=== PATIENT | male | born 1985 | race African-American/Black ===

== ENCOUNTER 2017-02-03 10:50 | Emergency (ER) | payer OTHER ==
[~2017-02-03] VITALS: Ht 175.3 cm; Wt 86.2 kg
[2017-02-03 10:50] VITALS: BP 161/113; PULSE 91; RESP 19; TEMP 97.2; O2SAT 98
[~2017-02-03 10:50] MED LIST: ATENOLOL; IBUPROFEN
--- NOTE | 2017-02-03 10:50 | NUR ---
BROUGHT BACK TO BED #3 AND TRIAGED. REPORT GIVEN TO ALEXANDRE
--- NOTE | 2017-02-03 10:51 | NUR ---
ER at bedside examining patient.
--- NOTE | 2017-02-03 10:52 | NUR ---
PT STATES THAT HE IS NOT ALLERGIC TO MORPHINE. DR HAYNES AWARE
--- NOTE | 2017-02-03 10:53 | NUR ---
pt presents to ED initially c/o chest pain and caban, howver during assessment reports chief complaint is headache. Pt h/o htn and [employer] shunt since with first malfunction at age 29 repaired at [place].
[2017-02-03] MEDS ORDERED: MORPHINE SULFATE 10 MG/ML VIAL IM ONE (11:00)
[2017-02-03] MEDS ORDERED: ONDANSETRON 4 MG ODT TAB PO ONE (11:00)
--- NOTE | 2017-02-03 11:01 | NUR ---
pt medicated for pain and nausea.Will reassess for results.
[2017-02-03 11:19] LABS: BASOPHILS % (AUTO) 0.6 % (0.0-2.0); EOSINOPHILS % (AUTO) 0.6 % (0.0-4.0); HEMOGLOBIN 12.8 g/dL (14.0-18.0); LYMPHOCYTES % (AUTO) 23.4 % (20.5-51.5); MEAN CORPUSCULAR HEMOGLOBIN 26 pg (27-31); MEAN CORPUSCULAR HGB CONC 32 % (32-36); MEAN CORPUSCULAR VOLUME 82 fL (79.0-98.0); MONOCYTES # (AUTO) 0.3 K/uL (0.0-1.0); MONOCYTES % (AUTO) 7.7 % (1.7-9.3); NEUTROPHILS # (AUTO) 2.8 K/uL (1.8-7.7); NEUTROPHILS % (AUTO) 67.7 % (40.0-70.0); PLATELET COUNT (AUTO) 294 K/uL (130-430); RED BLOOD CELL COUNT(AUTO) 4.86 MIL/uL (4.2-6.2); RED CELL DISTRIBUTION WIDTH 12.3 % (9.0-15.0); WHITE BLOOD COUNT (AUTO) 4.1 K/uL (4.8-10.8)
[2017-02-03 11:29] LABS: CALCIUM 9.9 mg/dL (8.4-11.0); CREATININE 1.12 mg/dL (0.55-1.30); POTASSIUM 4.4 mmol/L (3.5-5.1)
[2017-02-03 11:32] LABS: INR 0.9 (0.80-1.20); PROTHROMBIN TIME 10.1 SECS (9.5-12.5)
[2017-02-03 11:34] LABS: ALBUMIN 4.2 g/dL (3.4-4.8); TOTAL BILIRUBIN 0.3 mg/dL (0.0-1.0); TOTAL PROTEIN, SERUM 7.8 g/dL (6.4-8.3)
--- NOTE | 2017-02-03 11:35 | NUR ---
Pt reports Headache no improving,nausea resolved. Dr. marcus informed.
[2017-02-03] MEDS ORDERED: METOCLOPRAMIDE HCL 10 MG/2 ML VIAL IVP ONE (11:45)
[2017-02-03] MEDS ORDERED: DIPHENHYDRAMINE INJ 50 MG/ML VIAL IVP ONE (11:45)
--- NOTE | 2017-02-03 11:48 | NUR ---
Pt refused non narcotic medication for caban reflief. Pt denies SOB or chest pain.
[2017-02-03 12:10] LABS: CKMB RELATIVE INDEX 0.1 (0.0-2.9); CREATINE KINASE MB 0.5 ng/mL (0-3.6)
[2017-02-03] MEDS ORDERED: cloNIDine HCL 0.1 MG TABLET PO ONE (12:15)
--- NOTE | 2017-02-03 12:20 | NUR ---
Pt medicated for HTN.pt tolerated well.
[2017-02-03] MEDS ORDERED: ASPIRIN 325 MG TABLET (ECOTRIN) PO ONE (13:00)
--- NOTE | 2017-02-03 13:00 | NUR ---
Pt report headache resolved afer medication. BP 152/82
[2017-02-03 13:50] VITALS: BP 144/70; PULSE 88; RESP 20; TEMP 98.2; O2SAT 97
--- NOTE | 2017-02-03 13:50 | NUR ---
Patient to be transferred to [facility]. Is being transferred due to higher level of care. Receiving facility has accepting physician and available space. ER physician has signed transfer form. Patient or responsible republican has agreed to transfer and signed form. Patient belongings inventoried and will be sent with patient. Copy of nursing notes, lab reports, EKG, Physicians Orders and X-rays to be sent with patient. Report called to Pavan at receiving facility. ambulance service has been called for transfer.
[2017-06-15] MEDS ORDERED: LEVE750T4 PO (18:45)
[2017-06-15] MEDS ORDERED: LACO100T2 PO (18:48)
[2017-06-15] MEDS ORDERED: LISI-600 PO (18:48)
[2017-06-15] MEDS ORDERED: METO-442 PO (18:49)
[2017-06-15] MEDS ORDERED: ALPR1TAB2 PO (18:50)
== END 2017-02-03 13:50 | disposition short-term general hospital (02) ==
LOC: SED 10:50
DX: G91.9 Hydrocephalus, unspecified (principal); I31.9 Disease of pericardium, unspecified; I10 Essential (primary) hypertension
CPT/HCPCS: 36415; 70450; 71010; 80053; 82550; 82553; 83880; 84484; 85025; 85610; 85730; 93005; 96372; 99285; J1200; J2270; J2765; Q0162

== ENCOUNTER 2017-02-06 17:06 | Emergency (ER) | payer OTHER ==
[~2017-02-06] VITALS: Ht 175.3 cm; Wt 88.5 kg
[2017-02-06 17:09] VITALS: BP 142/98; PULSE 78; RESP 16; TEMP 97.6; O2SAT 99
--- NOTE | 2017-02-06 17:12 | NUR ---
Patient triaged and placed in waiting room. VSS and patient appears in no acute distress at this time. Accompanied by SELF, awaiting available bed, and MD notified of need for MSE.
--- NOTE | 2017-02-06 17:46 | NUR ---
Patient to ER bed 8 to gown for evaluation. Side rails up. Report given to primo billings.
--- NOTE | 2017-02-06 17:53 | NUR ---
Patient to ER C/O migraine headache localized on right side. States history of hydrocephalus and that he has shunt for constant drainage. States that in the last couple days the pain has increased 9/10. Denies N/V, blurry vision, afebrile. AAOx4, unlabored breathing, no signs of acute distress.
--- NOTE | 2017-02-06 18:34 | NUR ---
ER MD Hearn at bedside for evaluation
[2017-02-06] MEDS ORDERED: IBUPROFEN 800 MG TABLET PO ONE (18:45)
[2017-02-06] MEDS ORDERED: METOCLOPRAMIDE HCL 10 MG TABLET PO ONE (18:45)
--- NOTE | 2017-02-06 18:55 | NUR ---
Patient states "i can't believe that all i am getting is motrin, don't you know my history?" MD ramires
[2017-02-06 19:01] VITALS: BP 128/74; PULSE 64; RESP 15; TEMP 97.8; O2SAT 99
--- NOTE | 2017-02-06 20:03 | NUR ---
ER MD Loo at bedside for evaluation
[2017-02-06] MEDS ORDERED: DIPHENHYDRAMINE HCL 25 MG CAPSULE PO ONE (20:15)
[2017-02-06] MEDS ORDERED: DIPHENHYDRAMINE INJ 50 MG/ML VIAL IVP ONE (20:15)
--- NOTE | 2017-02-06 20:34 | NUR ---
Patient given verbal discharge instructions and verbalizes understanding. ER MD Loo discussed with patient the results and treatment provided. Patient in stable condition. ID arm band removed. Rx of motrin & zofran given. Patient educated on pain management and to follow up with PMD. Pain Scale 0/10. Opportunity for questions provided and answered. PATIENT REFUSED THE DC PACKAGE AND REFUSED TO SIGN THE DC PAPERS
[2017-06-15] MEDS ORDERED: LEVE750T4 PO (18:45)
[2017-06-15] MEDS ORDERED: LACO100T2 PO (18:48)
[2017-06-15] MEDS ORDERED: LISI-600 PO (18:48)
[2017-06-15] MEDS ORDERED: METO-442 PO (18:49)
[2017-06-15] MEDS ORDERED: ALPR1TAB2 PO (18:50)
== END 2017-02-06 20:34 | disposition home or self-care (01) ==
LOC: SED 17:06
DX: R51 Headache (principal); H93.8X1 Other specified disorders of right ear; I10 Essential (primary) hypertension
CPT/HCPCS: 99284; J8597; Q0163

== ENCOUNTER 2017-05-05 23:49 | Emergency (ER) | payer OTHER ==
[~2017-05-05] VITALS: Ht 175.3 cm; Wt 88.5 kg
[2017-05-05 23:54] VITALS: BP_SYST 154
--- NOTE | 2017-05-06 00:10 | NUR ---
Placed in room 08 . Placed on quality assurance monitor body, blood pressure machine and pulse oximeter. To gown for exam. Side rails up. Report given to HAILEY High.
--- NOTE | 2017-05-06 01:15 | NUR ---
Pt states he "blacked out" while walking. Was being treated at [place] ED and left. Pt reports 10 head pain. AAOx4. Will continue to monitor. No other injuries or complaints mentioned/noted. No distress noted.
--- NOTE | 2017-05-06 01:41 | NUR ---
ER at bedside examining patient.
[2017-05-06 03:04] LABS: BILIRUBIN,URINE NEGATIVE (NEGATIVE); BLOOD, URINE NEGATIVE (NEGATIVE); CLARITY/URINE CLEAR (CLEAR); COLOR,URINE YELLOW (YELLOW); GLUCOSE,URINE 2+ (NEGATIVE); KETONES,URINE NEGATIVE (NEGATIVE); LEUKOCYTE ESTERASE ,URINE NEGATIVE (NEGATIVE); NITRITE, URINE NEGATIVE (NEGATIVE); PH,URINE 5.5 (5.0-8.0); PROTEIN URINE NEGATIVE (NEGATIVE); UROBILINOGEN,URINE 0.2 (0.2-1.0)
[2017-05-06 03:14] LABS: BACTERIA,URINE RARE /HPF (None Seen); MUCUS,URINE None Seen /LPF (None Seen); RBC,URINE NONE SEEN /HPF (0-3); WBC,URINE 0-3 /HPF (0-3)
[2017-05-06 03:17] LABS: BARBITURATE, URINE NEGATIVE (NEG <=200); BENZODIAZEPINE, URINE POSITIVE (NEG <=150); CANNABINOID, URINE NEGATIVE (NEG <=50); COCAINE, URINE NEGATIVE (NEG <=150); METHAMPHETAMINES SCREEN,URINE NEGATIVE (NEG <=500); OPIATE, URINE POSITIVE (NEG <=100); PHENCYCLIDINE SCREEN,URINE NEGATIVE (NEG <=25); UR TRICYCLIC ANTIDEPRESSANTS NEGATIVE (NEG <=300); URINE AMPHETAMINE NEGATIVE (NEG <=500); URINE METHADONE NEGATIVE (NEG <=200); URINE OXYCODONE SCREEN NEGATIVE (NEG <=100); URINE PROPOXYPHENE SCREEN NEGATIVE (NEG <=300)
[2017-05-06] MEDS ORDERED: CYCLOBENZAPRINE HCL 10 MG TABLET (FLEXERIL) PO ONE (03:30)
[2017-05-06] MEDS ORDERED: KETOROLAC TROMETHAMINE 60 MG/2 ML VIAL IM ONE (03:30)
[2017-05-06 03:45] VITALS: BP_SYST 154
--- NOTE | 2017-05-06 03:45 | NUR ---
Patient given written and verbal discharge instructions and verbalizes understanding. ER MD discussed with patient the results and treatment provided. Patient in stable condition. ID arm band removed. Rx of Flexeril and ibuprofen given. Patient educated on pain management and to follow up with PMD. Pain Scale 3/10. Opportunity for questions provided and answered.
== END 2017-05-06 03:45 | disposition home or self-care (01) ==
LOC: SED 23:49
DX: S13.9XXA Sprain of joints and ligaments of unspecified parts of neck, initial encounter (principal); S01.01XA Laceration without foreign body of scalp, initial encounter; I10 Essential (primary) hypertension; F41.9 Anxiety disorder, unspecified; W01.0XXA Fall on same level from slipping, tripping and stumbling without subsequent striking against object, initial encounter; Y93.89 Activity, other specified; Y92.89 Other specified places as the place of occurrence of the external cause; Y99.8 Other external cause status
CPT/HCPCS: 70450; 72125; 80307; 81000; 93005; 96372; 99285; J1885

== ENCOUNTER 2017-07-24 05:45 | Emergency (ER) | payer OTHER ==
[~2017-07-24 05:45] MED LIST changes: +ALPR1TAB2 PO; +LACO100T2 PO; +LEVE750T4 PO; +LISI-600 PO; +METO-442 PO
[2017-07-24 08:37] LABS: CALCIUM 9.2 mg/dL (8.4-11.0); CREATININE 1.29 mg/dL (0.55-1.30); POTASSIUM 3.7 mmol/L (3.5-5.1)
[2017-07-24 08:41] LABS: BASOPHILS % (AUTO) 0.4 % (0.0-2.0); EOSINOPHILS % (AUTO) 1.1 % (0.0-4.0); HEMATOCRIT 34.9 % (36-54); HEMOGLOBIN 11.1 g/dL (14.0-18.0); INR 0.9 (0.80-1.20); LYMPHOCYTES # (AUTO) 1.4 K/uL (1.0-5.5); LYMPHOCYTES % (AUTO) 51.2 % (20.5-51.5); MEAN CORPUSCULAR HEMOGLOBIN 26 pg (27-31); MEAN CORPUSCULAR HGB CONC 32 % (32-36); MEAN CORPUSCULAR VOLUME 81 fL (79.0-98.0); MONOCYTES # (AUTO) 0.2 K/uL (0.0-1.0); MONOCYTES % (AUTO) 9.3 % (1.7-9.3); PLATELET COUNT (AUTO) 315 K/uL (130-430); RED CELL DISTRIBUTION WIDTH 12.7 % (9.0-15.0); WHITE BLOOD COUNT (AUTO) 2.6 K/uL (4.8-10.8)
[2017-07-24 08:42] LABS: TOTAL BILIRUBIN 0.3 mg/dL (0.0-1.0)
== END 2017-07-24 08:37 | disposition home or self-care (01) ==
LOC: SED 05:45
DX: S06.9X1A Unspecified intracranial injury with loss of consciousness of 30 minutes or less, initial encounter (principal); F41.9 Anxiety disorder, unspecified; W18.09XA Striking against other object with subsequent fall, initial encounter; Y93.01 Activity, walking, marching and hiking; Y92.89 Other specified places as the place of occurrence of the external cause; Y99.8 Other external cause status
CPT/HCPCS: 36415; 70450-TC; 80053; 85025; 85610-TC; 85730-TC; 99285

== ENCOUNTER 2020-06-28 19:28 | Emergency (ER) | payer OTHER ==
[~2020-06-28] VITALS: Ht 172.7 cm; Wt 104.3 kg
[2020-06-28 19:42] VITALS: BP_SYST 190
[2020-06-28 20:48] LABS: BASOPHILS % (AUTO) 0.4 % (0.0-2.0); HEMATOCRIT 44.3 % (36-54); HEMOGLOBIN 14.4 g/dL (14.0-18.0); LYMPHOCYTES # (AUTO) 0.7 K/uL (1.0-5.5); LYMPHOCYTES % (AUTO) 6.2 % (20.5-51.5); MEAN CORPUSCULAR HEMOGLOBIN 28 pg (27-31); MEAN CORPUSCULAR HGB CONC 33 % (32-36); MEAN CORPUSCULAR VOLUME 86 fL (79.0-98.0); MONOCYTES # (AUTO) 0.5 K/uL (0.0-1.0); MONOCYTES % (AUTO) 4.8 % (1.7-9.3); NEUTROPHILS # (AUTO) 9.5 K/uL (1.8-7.7); NEUTROPHILS % (AUTO) 88.6 % (40.0-70.0); PLATELET COUNT (AUTO) 299 K/uL (130-430); RED BLOOD CELL COUNT(AUTO) 5.15 MIL/uL (4.2-6.2); RED CELL DISTRIBUTION WIDTH 13.1 % (9.0-15.0); WHITE BLOOD COUNT (AUTO) 10.7 K/uL (4.8-10.8)
[2020-06-28 20:57] LABS: CALCIUM 9.8 mg/dL (8.4-11.0); CREATININE 1.18 mg/dL (0.55-1.30); POTASSIUM 4.5 mmol/L (3.5-5.1)
[2020-06-28 21:03] LABS: ALBUMIN 3.7 g/dL (3.4-4.8); TOTAL BILIRUBIN 0.3 mg/dL (0.0-1.0)
[2020-06-28 21:55] LABS: BILIRUBIN,URINE NEGATIVE (NEGATIVE); BLOOD, URINE NEGATIVE (NEGATIVE); CLARITY/URINE SL CLOUDY (CLEAR); GLUCOSE,URINE 2+ (NEGATIVE); KETONES,URINE 1+ (NEGATIVE); LEUKOCYTE ESTERASE ,URINE NEGATIVE (NEGATIVE); NITRITE, URINE NEGATIVE (NEGATIVE); PH,URINE 5.5 (5.0-8.0); PROTEIN URINE 2+ (NEGATIVE); UROBILINOGEN,URINE 0.2 (0.2-1.0)
[2020-06-28 22:05] LABS: COLOR,URINE YELLOW (YELLOW)
[2020-06-28 22:24] LABS: BACTERIA,URINE FEW /HPF (None Seen); MUCUS,URINE 1+ /LPF (None Seen); RBC,URINE NONE SEEN /HPF (0-3); URINE AMORPHOUS URATE 3+ /HPF (None Seen); WBC,URINE 0-3 /HPF (0-3)
[2020-06-29] MEDS ORDERED: fentaNYL CITRATE/PF 100 MCG/2 ML AMP IVP ONE ×2 (00:45→03:00)
[2020-06-29] MEDS ORDERED: DIPHENHYDRAMINE INJ 50 MG/ML VIAL IVP ONE (00:45)
[2020-06-29 05:22] VITALS: BP_SYST 148
== END 2020-06-29 05:22 | disposition home or self-care (01) ==
LOC: SED 19:28
DX: K59.00 Constipation, unspecified (principal); R10.32 Left lower quadrant pain; I10 Essential (primary) hypertension; F41.9 Anxiety disorder, unspecified; G91.9 Hydrocephalus, unspecified; Z79.899 Other long term (current) drug therapy; Z88.8 Allergy status to other drugs, medicaments and biological substances; Z88.6 Allergy status to analgesic agent; Z90.49 Acquired absence of other specified parts of digestive tract
CPT/HCPCS: 36415; 74176; 80053; 81000; 83690; 85025; 96374; 96375; 96376; 99285; J1200; J3010

== ENCOUNTER 2021-03-10 21:52 | Emergency (ER) | payer OTHER ==
[~2021-03-10] VITALS: Ht 172.7 cm; Wt 104.3 kg
[2021-03-10 21:52] VITALS: BP_SYST 165
[~2021-03-10 21:52] MED LIST changes: -ALPR1TAB2 PO; +APIX5TAB PO; -ATENOLOL; -IBUPROFEN; -LACO100T2 PO; -LISI-600 PO; +LISI20TA30 PO
[2021-03-10] MEDS ORDERED: KETOROLAC TROMETHAMINE 60 MG/2 ML VIAL IM ONE (22:15)
[2021-03-10] MEDS ORDERED: HYDROcodone/ACETAMIN 10-325 MG TAB PO ONE (22:15)
[2021-03-10] MEDS ORDERED: methylPREDNISolone SOD SUCC/PF 62.5 MG/ML VIAL IM ONE (23:00)
[2021-03-10] MEDS ORDERED: PRED10TA PO (23:07)
[2021-03-10] MEDS ORDERED: HYDR-3927 PO (23:07)
[2021-03-10] MEDS ORDERED: IBUP-1971 PO (23:07)
[2021-03-10 23:30] VITALS: BP_SYST 165
== END 2021-03-10 23:30 | disposition home or self-care (01) ==
LOC: SED 21:52
DX: M54.40 Lumbago with sciatica, unspecified side (principal)
CPT/HCPCS: 96372; 99284; J1885; J2930